=== PATIENT | female | born 1985 | race Caucasian/White ===

== ENCOUNTER 2018-02-16 08:41 | Emergency (ER) | payer BC ==
--- OUTSIDE RECORDS SUMMARY | 2018-02-16 08:49 | XMS REPORT ---
:1985 External Reference #:[id number] Author Organization [facility] Address [address] [place] [address] Phone [phone] Care Team Providers Name Role Phone IVY Bedolla Care Team Information Rn Integrity Unavailable Payers Type Date Identification Numbers Payment Provider Subscriber Commercial Policy Number: [id number] [place] MATHEWS Deshawn Lu Group Name: [employer] [address] [address] PayID: [id number] LAURA Son 1938[address] Problems Description No Information Family History Date Family Member(s) Problem(s) Comments Father intraocular melanoma Father 61 Father Diabetes Mother 62 Onset: (age 48 Years) Mother Cancer, Colon Mother Heart Disease Mother Obesity Mother Hip Replacement Social History Type Date Description Comments Cigarette Use quit - age unknown ETOH Use Occasionally consumes wine 1-3 glasses per month Exercise Type/Frequency Running Exercise Type/Frequency Hiking Allergies, Adverse Reactions, Alerts Date Description Reaction Status Severity Comments 03/16/2017 Sulfa Hives active Mild to Moderate 03/16/2017 Cefaclor rash active rash Medications Medication Date Status Form Strength Qnty SIG Indications Ordering Provider Montelukast 08/20/ Active Tablets 10mg 30tabs Take One Cristy Sodium 2017 Tablet By Shortle, Mouth 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 Prozac / Active Capsules 40mg 30caps 1 by mouth Trinity 0000 every day RUDY Benavides- Multi Vitamin / Active Tablets 1 by mouth Unknown Daily 0000 at hs Xyzal / Active Tablets 5mg take 1 Unknown 0000 tablet by mouth daily every evening for allergies Mirena (52 MG) / Active IUD 20mcg/24HR inserted Unknown 2013 Diflucan 07/27/ Hx Tablets 150mg 2tabs take 1 Trinity2016 - tablet now Ed, December repeat [employer]-C 2018 in 1 week if needed Singulair / Hx Tablets 10mg 30tabs 1 by mouth Trinity 0000 - in the [facility], 08/20/ evening. [facility] 2016 Oxycodone-Aceta / Hx Tablets 5-325mg 20tabs 1 tab po q Trinity minophen 0000 - 4-6 hours Ed, 11/05/ prn pain [employer] 2018 Immunizations CPT Code Status Date Vaccine Lot # [id number] Given 06/18/2017 Influenza Virus Vaccine, Quadrivalent, 3 Yr > [id number] Quad, Preserv Free [id number] Given 05/06/2016 Influenza Virus Vaccine, Quadrivalent, 3 Yr > Quad, Preserv Free Vital Signs Date Vital Result Comment 01/17/2018 Weight 197.00 lb Weight in kg's 89.359 BP Systolic 100 mmHg BP Diastolic 62 mmHg Heart Rate 72 /min Body Temperature 97.8 F Respiratory Rate 16 /min O2 % BldC Oximetry 99 % 11/05/2017 Weight 198.00 lb Weight in kg's 89.813 BP Systolic 100 mmHg BP Diastolic 62 mmHg Heart Rate 78 /min Body Temperature 98.5 F Respiratory Rate 14 /min Height 65 inches 5'5" BMI (Body Mass Index) 32.9 kg/m2 09/24/2017 Weight 199.00 lb Weight in kg's 90.266 BP Systolic 122 mmHg BP Diastolic 62 mmHg Heart Rate 64 /min Body Temperature 96.9 F Respiratory Rate 16 /min O2 % BldC Oximetry 98 % 08/17/2017 Weight 205.00 lb Weight in kg's 92.988 BP Systolic 102 mmHg BP Diastolic 60 mmHg Heart Rate 62 /min Body Temperature 98.0 F Respiratory Rate 16 /min Height 66 inches 5'6" BMI (Body Mass Index) 33.1 kg/m2 O2 % BldC Oximetry 98 % 07/27/2017 BP Systolic 100 mmHg BP Diastolic 60 mmHg Heart Rate 60 /min Body Temperature 98.2 F Respiratory Rate 14 /min O2 % BldC Oximetry 97 % 03/16/2017 Weight 184.00 lb Weight in kg's 83.462 BP Systolic 90 mmHg BP Diastolic 62 mmHg Heart Rate 54 /min Body Temperature 98.0 F Respiratory Rate 14 /min Height 65 inches 5'5" BMI (Body Mass Index) 30.6 kg/m2 Last Menstrual Period [id number] Results Test Date Test Result H/L Range Note Laboratory test finding 01/17/2018 Vitamin D Total 25(Oh) 26.7 ng/mL 20- 50 1 Vitamin B12 918 pg/mL High 180-914 2 Laboratory test finding 01/10/2018 Ferritin 35.8 ng/mL 11-307 3 Iron & Iron Binding 01/10/2018 Unsaturated Iron Binding 197 g/dL Capacity Total Iron Binding Capacity 318 g/dL 250-450 Transferrin 227 mg/dL 203-362 % Iron Saturation 38 % 15-55 Laboratory test finding 01/10/2018 Iron 121 g/dL 50-212 CBC Auto Diff 01/10/2018 White Blood Count 5.9 10^3/uL 3.5-10.8 Red Blood Count 4.38 10^6/uL 4.0-5.4 Hemoglobin 13.5 g/dL 12.0-16.0 Hematocrit 40 % 35-47 Mean Corpuscular Volume 91 fL 80-97 Mean Corpuscular Hemoglobin 31 pg 27-31 Mean Corpuscular HGB Conc 34 g/dL 31-36 Red Cell Distribution Width 14 % 10.5-15 Platelet Count 327 10^3/uL 150-450 Mean Platelet Volume 8.0 um3 7.4-10.4 Abs Neutrophils 3.1 10^3/uL 1.5-7.7 Abs Lymphocytes 2.2 10^3/uL 1.0-4.8 Abs Monocytes 0.4 10^3/uL 0-0.8 Abs Eosinophils 0.1 10^3/uL 0-0.6 Abs Basophils 0 10^3/uL 0-0.2 Abs Nucleated RBC 0 10^3/uL Granulocyte % 52.8 % 38-83 Lymphocyte % 38.0 % 25-47 Monocyte % 7.2 % High 0-7 Eosinophil % 1.5 % 0-6 Basophil % 0.5 % 0-2 Nucleated Red Blood Cells % 0.1 Comp Metabolic Panel 01/10/2018 Sodium 139 mmol/L 139-145 Potassium 4.6 mmol/L 3.5-5.0 Chloride 105 mmol/L 101-111 Co2 Carbon Dioxide 29 mmol/L 22-32 Anion Gap 5 mmol/L 2-11 Glucose 65 mg/dL Low 70-100 Blood Urea Nitrogen 18 mg/dL 6-24 Creatinine 0.68 mg/dL 0.51-0.95 BUN/Creatinine Ratio 26.5 High 8-20 Calcium 9.5 mg/dL 8.6-10.3 Total Protein 7.0 g/dL 6.4-8.9 Albumin 4.1 g/dL 3.2-5.2 Globulin 2.9 g/dL 2-4 Albumin/Globulin Ratio 1.4 1-3 Total Bilirubin 0.70 mg/dL 0.2-1.0 Alkaline Phosphatase 52 U/L 34-104 Alt 16 U/L 7-52 Ast 20 U/L 13-39 Egfr Non- 99.6 >60 Egfr 128.2 >60 4 Laboratory test finding 01/10/2018 TSH (Thyroid Stim Horm) 2.99 mcIU/mL 0.34-5.60 5 Free T4 (Free Thyroxine) 0.89 ng/dL 0.61-1.12 6 T3 Total 0.62 ng/mL Low 0.87-1.78 7 Thyroperoxidase AB 429.16 IU/mL High <9 8 CBC Auto Diff 11/01/2017 White Blood Count 7.5 10^3/uL 3.5-10.8 Red Blood Count 4.09 10^6/uL 4.0-5.4 Hemoglobin 12.3 g/dL 12.0-16.0 Hematocrit 37 % 35-47 Mean Corpuscular Volume 90 fL 80-97 Mean Corpuscular Hemoglobin 30 pg 27-31 Mean Corpuscular HGB Conc 34 g/dL 31-36 Red Cell Distribution Width 13 % 10.5-15 Platelet Count 338 10^3/uL 150-450 Mean Platelet Volume 8 um3 7.4-10.4 Abs Neutrophils 4.3 10^3/uL 1.5-7.7 Abs Lymphocytes 2.5 10^3/uL 1.0-4.8 Abs Monocytes 0.6 10^3/uL 0-0.8 Abs Eosinophils 0.1 10^3/uL 0-0.6 Abs Basophils 0 10^3/uL 0-0.2 Abs Nucleated RBC 0 10^3/uL Granulocyte % 56.9 % 38-83 Lymphocyte % 33.4 % 25-47 Monocyte % 7.7 % High 0-7 Eosinophil % 1.4 % 0-6 Basophil % 0.6 % 0-2 Nucleated Red Blood Cells % 0.1 Iron & Iron Binding Capacity 11/01/2017 Iron 43 g/dL Low 50-212 Unsaturated Iron Binding 300 g/dL Total Iron Binding Capacity 343 g/dL 250-450 % Iron Saturation 13 % Low 15-55 Laboratory test finding 11/01/2017 TSH (Thyroid Stim 3.11 mcIU/mL 0.34- 5.60 9 Horm) Iron & Iron Binding 09/20/2017 Iron 46 g/dL Low 50-212 Capacity Unsaturated Iron Binding 282 g/dL Total Iron Binding Capacity 328 g/dL 250-450 % Iron Saturation 14 % Low 15-55 CBC Auto Diff 09/20/2017 White Blood Count 10.1 10^3/uL 3.5-10.8 Red Blood Count 3.94 10^6/uL Low 4.0-5.4 Hemoglobin 11.9 g/dL Low 12.0-16.0 Hematocrit 36 % 35-47 Mean Corpuscular Volume 91 fL 80-97 Mean Corpuscular Hemoglobin 30 pg 27-31 Mean Corpuscular HGB Conc 33 g/dL 31-36 Red Cell Distribution Width 13 % 10.5-15 Platelet Count 393 10^3/uL 150-450 Mean Platelet Volume 8 um3 7.4-10.4 Abs Neutrophils 7.0 10^3/uL 1.5-7.7 Abs Lymphocytes 2.4 10^3/uL 1.0-4.8 Abs Monocytes 0.4 10^3/uL 0-0.8 Abs Eosinophils 0.1 10^3/uL 0-0.6 Abs Basophils 0.1 10^3/uL 0-0.2 Abs Nucleated RBC 0 10^3/uL Granulocyte % 69.4 % 38-83 Lymphocyte % 24.2 % Low 25-47 Monocyte % 4.2 % 1-9 Eosinophil % 1.3 % 0-6 Basophil % 0.9 % 0-2 Nucleated Red Blood Cells % 0 CBC Auto Diff 08/17/2017 White Blood Count 13.4 10^3/uL High 3.5-10.8 Red Blood Count 3.27 10^6/uL Low 4.0-5.4 Hemoglobin 9.9 g/dL Low 12.0-16.0 Hematocrit 30 % Low 35-47 Mean Corpuscular Volume 92 fL 80-97 Mean Corpuscular Hemoglobin 30 pg 27-31 Mean Corpuscular HGB Conc 33 g/dL 31-36 Red Cell Distribution Width 13 % 10.5-15 Platelet Count 572 10^3/uL High 150-450 Mean Platelet Volume 6 um3 Low 7.4-10.4 Abs Neutrophils 9.1 10^3/uL High 1.5-7.7 Abs Lymphocytes 3.1 10^3/uL 1.0-4.8 Abs Monocytes 0.8 10^3/uL 0-0.8 Abs Eosinophils 0.2 10^3/uL 0-0.6 Abs Basophils 0.1 10^3/uL 0-0.2 Abs Nucleated RBC 0.02 10^3/uL Granulocyte % 68.3 % 38-83 Lymphocyte % 23.5 % Low 25-47 Monocyte % 5.9 % 1-9 Eosinophil % 1.7 % 0-6 Basophil % 0.6 % 0-2 Nucleated Red Blood Cells % 0.1 Iron & Iron Binding Capacity 08/17/2017 Iron 29 g/dL Low 50-212 Unsaturated Iron Binding 276 g/dL Total Iron Binding Capacity 305 g/dL 250-450 % Iron Saturation 10 % Low 15-55 Laboratory test 04/30/2017 TSH (Thyroid 2.63 mcIU/mL 0.34-5.60 10, 11 finding Stimulating Horm) Total T3 0.54 ng/mL Low 0.87-1.78 10, 12 Free T4 0.82 ng/dL 0.61-1.12 10, 13 Laboratory test finding 03/16/2017 Cytology SEE RESULT BELOW 14 CBC Auto Diff 03/16/2017 White Blood Count 7.9 10^3/uL 3.5-10.8 Red Blood Count 4.29 10^6/uL 4.0-5.4 Hemoglobin 13.3 g/dL 12.0-16.0 Hematocrit 41 % 35-47 Mean Corpuscular Volume 96 fL 80-97 Mean Corpuscular Hemoglobin 31 pg 27-31 Mean Corpuscular HGB Conc 33 g/dL 31-36 Red Cell Distribution Width 13 % 10.5-15 Platelet Count 295 10^3/uL 150-450 Mean Platelet Volume 8 um3 7.4-10.4 Abs Neutrophils 4.5 10^3/uL 1.5-7.7 Abs Lymphocytes 2.9 10^3/uL 1.0-4.8 Abs Monocytes 0.5 10^3/uL 0-0.8 Abs Eosinophils 0.1 10^3/uL 0-0.6 Abs Basophils 0 10^3/uL 0-0.2 Abs Nucleated RBC 0 10^3/uL Granulocyte % 56.5 % 38-83 Lymphocyte % 36.2 % 25-47 Monocyte % 5.9 % 1-9 Eosinophil % 0.8 % 0-6 Basophil % 0.6 % 0-2 Nucleated Red Blood Cells % 0 Comp Metabolic Panel 03/16/2017 Sodium 136 mmol/L 133-145 Potassium 3.9 mmol/L 3.5-5.0 Chloride 103 mmol/L 101-111 Co2 Carbon Dioxide 28 mmol/L 22-32 Anion Gap 5 mmol/L 2-11 Glucose 63 mg/dL Low 70-100 Blood Urea Nitrogen 13 mg/dL 6-24 Creatinine 0.72 mg/dL 0.51-0.95 BUN/Creatinine Ratio 18.1 8-20 Calcium 9.5 mg/dL 8.6-10.3 Total Protein 6.9 g/dL 6.4-8.9 Albumin 4.1 g/dL 3.2-5.2 Globulin 2.8 g/dL 2-4 Albumin/Globulin Ratio 1.5 1-3 Total Bilirubin 1.10 mg/dL High 0.2-1.0 Alkaline Phosphatase 31 U/L Low 34-104 Alt 16 U/L 7-52 Ast 19 U/L 13-39 Egfr Non- 93.9 >60 Egfr 120.7 >60 15 Lipid Profile (Trig/Chol/HDL) 03/16/2017 Triglycerides 66 mg/dL 16 Cholesterol 163 mg/dL 17 HDL Cholesterol 54.8 mg/dL 18 LDL Cholesterol 95 mg/dL 19 Laboratory test finding 03/16/2017 TSH (Thyroid 2.65 mcIU/mL 0.34-5.60 20 Stimulating Horm) Free T4 1.05 ng/dL 0.61-1.12 21 Total T3 0.51 ng/mL Low 0.87-1.78 22 HPV Rna Ww/Reflex Genotype Negative Negative 23 1 [id number] 2 Normal Range 180 to 914 Indeterminate Range 145 to 180 Deficient Range <145 3 [id number] 4 Because ethnic data is not always readily available, this report includes an eGFR for both -Americans and non- Americans. The National Kidney Disease Education Program (NKDEP) does not endorse the use of the MDRD equation for patients that are not between the ages of 18 and 70, are , have extremes of body size, muscle mass, or nutritional status, or are non- or non-. According to the National Kidney Foundation, irrespective of diagnosis, the stage of the disease is based on the level of kidney function: Stage Description GFR(mL/min/1.73 m(2)) 1 Kidney damage with normal or decreased GFR 90 2 Kidney damage with mild decrease in GFR 60-89 3 Moderate decrease in GFR 30-59 4 Severe decrease in GFR 15-29 5 Kidney failure <15 (or dialysis) 5 [id number] 6 [id number] 7 [id number] 8 [id number] 9 [id number] 10 [id number] 11 [id number] 12 [id number] 13 [id number] 14 SEE RESULT BELOW Name: DESHAWN LU: [address]: Trinity Benavides NP Acct: [id number] Unit: [id number] AGE: 31 Location: [facility] Re03/16/17 SEX: F Status: REG REF SPEC: [id number] NAWAF: 03/16/17-[address] [facility] [address]: Trinity Benavides NP REQ: [id number] RECD: 03/16/17 STATUS: SOUT _ ORDERED: TP IMAGE ANAL, HPV/Thin Prep, HPV 16/18 GENE COMMENTS: [id number] FINAL DIAGNOSIS Negative for Intraepithelial lesion or Malignancy A. Ectocervical/Endocervical Specimen Adequacy: Satisfactory of evaluation Transformation zone component identified Patient Information: HPV: High risk HPV RNA testing regardless of pap results. HPV 16/18 Genotype Reflex Actual Specimen Date: 03/16/17 Last Menstrual Date: 02/23/17 Spec Date if unknown: unknown ?: N Date Time Test Result Flag (u) Normal Range 03/16/17 0924 HPV RNA RFLX GE Negative Negative The high-risk HPV types detected by the assay include: 16, 18, 31, 33, 35, 39, 45, 51, 52, 56, 58, 59, 66, and 68. Signed (signature on file) CORDELL Dalton(ASCP) 03/17 1505 This Pap test was evaluated with the assistance of the [facility] Test Imaging System. Due to cytologic findings at the touch up worker microscope, comprehensive manual rescreening by a Manufacturing Plant Manager may be required. The Pap Smear is a screening test designed to aid in the detection of premalignant and malignant conditions of the uterine cervix. It is not a diagnostic procedure and should not be used as the sole means of detecting cervical cancer. Both false- positive and false- negative reports do occur. Depending on your risk status, a Pap smear should be obtained and evaluated every 1-3 years. END OF REPORT * ML=Testing performed at Main Lab DEPARTMENT OF PATHOLOGY, [address] [place] [address] Maxwell Morfin M.D. Director [facility] # [id number] 15 Because ethnic data is not always readily available, this report includes an eGFR for both -Americans and non- Americans. The National Kidney Disease Education Program (NKDEP) does not endorse the use of the MDRD equation for patients that are not between the ages of 18 and 70, are , have extremes of body size, muscle mass, or nutritional status, or are non- or non-. According to the National Kidney Foundation, irrespective of diagnosis, the stage of the disease is based on the level of kidney function: Stage Description GFR(mL/min/1.73 m(2)) 1 Kidney damage with normal or decreased GFR 90 2 Kidney damage with mild decrease in GFR 60-89 3 Moderate decrease in GFR 30-59 4 Severe decrease in GFR 15-29 5 Kidney failure <15 (or dialysis) 16 Desirable <150 Borderline high 150-199 High 200-499 Very High >500 17 Desirable <200 Borderline high 200-239 High >239 18 Low <40 Desirable: 40-60 High: >60 19 Desirable: <100 mg/dL Near Optimal: 100-129 mg/dL Borderline High: 130-159 mg/dL High: 160-189 mg/dL Very High: >189 mg/dL 20 [id number] 21 [id number] 22 [id number] 23 The high-risk HPV types detected by the assay include: 16, 18, 31, 33, 35, 39, 45, 51, 52, 56, 58, 59, 66, and 68. Procedures Date CPT Code Description Status Comment 08/30/2013 Colonoscopy Completed Due 2018. Patient is high risk as mother was diagnosed colon in her 40s. Patient has colonoscopy every 5 years with last 2013 in [place] and [place] Encounters Type Date Location Provider CPT E/M Dx Office Visit 11/05/2017 9:00a [place] [address] D64.9 Office Visit 09/24/2017 9:45a Main Office RUDY Bedolla-Dashawn 58795 D64.9 M41.9 E03.9 Office Visit 08/17/2017 11:00a Main Office RUDY Bedolla-Dashawn 12318 D64.9 M41.9 Office Visit 07/27/2017 10:45a Main Office RUDY Bedolla-C 37178 E03.9 F32.89 F41.9 Office Visit 03/16/2017 8:00a Main Office RUDY Bedolla-Dashawn 68071 Z00.00 E03.9 Plan of Care 01/17/2018 - Cristy Rosales NPE03.9 Hypothyroidism, unspecifiedComments:No acute concerns today.Reviewed labs with patientDue to elevated thyroid antibody , TSH wnl, and continued symptoms, patient will be referred to specialist for further evaluationEducated on new/worsening symptoms and when to call/return. Patient stated understanding and agrees to planFollow up:refer to dr hernandez for hypothyroid evaluation and management
--- NOTE | 2018-02-16 10:22 | ED ---
GI/ HPI - HPI Summary HPI Summary: 32 female presents with constipation for the past 5 days. She states she's taken some mag citrate without relief. She states that she doesn't really have a sensation that she needs to go. States feels Little fatigue. She admits to nausea. She admits to some lower abdominal pain. She denies any pain with urination. She had spine surgery in July and was told to watch her bowel habits. She denies any saddle anesthesia. No loss of bowel or bladder. She is not having any urinary symptoms. No urinary retention that she knows of. No weakness into legs. No numbness or tingling to her legs. No new injury. Has been walking with a normal gait. No back pain. - History of Current Complaint Chief Complaint: UCAbdominalPain Time Seen by Provider: 02/16/18 10:05 Stated Complaint: ABD PAIN Hx Last Menstrual Period: 02/04/18 Pain Intensity: 4 - Allergy/Home Medications Allergies/Adverse Reactions: Allergies Allergy/AdvReac Type Severity Reaction Status Date / Time bee venom protein (honey bee) Allergy Hives Verified 02/16/18 08:56 cefaclor [From Ceclor] Allergy Hives Verified 02/16/18 08:56 hydrocodone Allergy Nausea And Verified 02/16/18 08:56 Vomiting oxycodone Allergy Nausea And Verified 02/16/18 08:56 Vomiting Sulfa (Sulfonamide Allergy Hives Verified 02/16/18 08:56 Antibiotics) PMH/Surg Hx/FS Hx/Imm Hx Endocrine/Hematology History: Reports: Hx Thyroid Disease - HYPO Denies: Hx Diabetes Cardiovascular History: Denies: Hx Hypertension, Hx Pacemaker/ICD Respiratory History: Reports: Hx Asthma - RARE USE OF ALBUTEROL INHALER History: Denies: Hx Dialysis, Hx Renal Disease Sensory History: Reports: Hx Contacts or Glasses - GLASSES Denies: Hx Hearing Aid Opthamlomology History: Reports: Hx Contacts or Glasses - GLASSES Psychiatric History: Denies: Hx Panic Disorder - Surgical History Surgery Procedure, Year, and Place: LEFT FOOT ORIF 2010 [place]. REMOVAL OF SCREWS 2010 [place]. TONSILLECTOMY. WISDOM TEETH REMOVAL. spinal fusion Hx Anesthesia Reactions: No Infectious Disease History: No Infectious Disease History: Reports: Traveled Outside the [place] in Last 30 Days - [place] - Family History Known Family History: Negative: Diabetes - Social History Alcohol Use: Occasionally Substance Use Type: Reports: None Smoking Status (MU): Former Smoker Type: Cigarettes Length of Time of Smoking/Using Tobacco: ON AND OFF 10 YRS Have You Smoked in the Last Year: Yes Review of Systems Negative: Fever Negative: Chest Pain Negative: Shortness Of Breath Positive: Abdominal Pain, Other - constipation All Other Systems Reviewed And Are Negative: Yes Physical Exam Triage Information Reviewed: Yes Vital Signs On Initial Exam: Initial Vitals Temp Pulse Resp BP Pulse Ox 98.3 F 63 18 112/74 100 02/16/18 08:49 02/16/18 08:49 02/16/18 08:49 02/16/18 08:49 02/16/18 08:49 Vital Signs Reviewed: Yes Appearance: Positive: Well-Appearing Skin: Positive: Warm, Dry Head/Face: Positive: Normal Head/Face Inspection Eyes: Positive: Normal, Conjunctiva Clear ENT: Positive: Pharynx normal Respiratory/Lung Sounds: Positive: Clear to Auscultation, Breath Sounds Present Cardiovascular: Positive: Normal, RRR Abdomen Description: Positive: Nontender, Soft, Other: - normal rectal tone Bowel Sounds: Positive: Present Musculoskeletal: Positive: Strength/ROM Intact - back, Other - Normal strength in lower extremities, nontender lower back, sensation grossly intact, good pulses Neurological: Positive: Normal, Reflexes Intact - patella, Normal Gait Psychiatric: Positive: Normal Diagnostics - Vital Signs Vital Signs Temp Pulse Resp BP Pulse Ox 02/16/18 08:49 98.3 F 63 18 112/74 100 - Laboratory Lab Statement: Any lab studies that have been ordered have been reviewed, and results considered in the medical decision making process. GIGU Course/Dx - Course Course Of Treatment: 32 female presents with constipation for the past 5 days. She states she's taken some mag citrate without relief. She states that she doesn't really have a sensation that she needs to go. States feels Little fatigue. She admits to nausea. She admits to some lower abdominal pain. She denies any pain with urination. She had spine surgery in July and was told to watch her bowel habits. She denies any saddle anesthesia. No loss of bowel or bladder. She is not having any urinary symptoms. No urinary retention that she knows of. No weakness into legs. No numbness or tingling to her legs. No new injury. Has been walking with a normal gait. No back pain. On exam nontender back. Neurovascular intact in lower legs. Normal rectal exam with soft stool in vault. Patellar reflex intact. Do not suspect cauda equina as normal neuro exam and normal rectal tone. X-ray shows stool present. Will treat constipation with enema and Colace. Told to follow-up with primary. Patient understands agrees with plan. - Diagnoses Differential Diagnoses - Female: Bowel Obstruction, Constipation, Other - cauda equina Provider Diagnoses: Abdominal pain, Constipation Discharge - Sign-Out/Discharge Documenting (check all that apply): Discharge/Admit/Transfer - Discharge Plan Condition: Good Disposition: HOME Prescriptions: Docusate CAP* [Colace Cap*] 100 mg PO BID #20 cap Sodium Phosphate ADULT ENEMA* [Fleet Enema*] 1 enema LA DAILY PRN #1 [id number] PRN Reason: Constipation Patient Education Materials: Constipation (ED) Referrals: Laura Sharp MD [Primary Care Provider] - Additional Instructions: use enema once a day take colace twice a day increase fiber Follow up with primary within 5 days Return to ED if develop any weakness legs, loss of bowel and bladder function, or pins and needles sensation in pelvis or any new or worsening symptoms - Billing Disposition and Condition Condition: GOOD Disposition: Home
--- NOTE | 2018-02-16 11:01 | RAD ---
INDICATION: Lower abdominal pain. Constipation COMPARISON: None TECHNIQUE: Erect and supine views of the abdomen are submitted. FINDINGS: Bones: There are no acute bony findings. There is a minor scoliotic deformity. There are Hampton rods. Soft tissues: The soft tissues appear normal. The psoas margins are sharp. Bowel gas pattern: Normal Calcifications: There are no abnormal calcifications. Other: There is no IUD. IMPRESSION: NO ACUTE DIAGNOSTIC FINDINGS.
[2018-02-16 11:23] VITALS: BP 120/68
== END 2018-02-16 11:23 | disposition home or self-care (01) ==
LOC: UCEAST 08:41
DX: K59.00 Constipation, unspecified (principal); R10.30 Lower abdominal pain, unspecified; R53.83 Other fatigue; R11.0 Nausea; J45.909 Unspecified asthma, uncomplicated; Z91.030 Bee allergy status; Z88.1 Allergy status to other antibiotic agents; Z88.5 Allergy status to narcotic agent; Z88.2 Allergy status to sulfonamides; Z98.1 Arthrodesis status; Z87.891 Personal history of nicotine dependence
CPT/HCPCS: 74019; 99212; G0463